=== PATIENT | female | born 2000 | race Caucasian/White ===

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

== ENCOUNTER 2022-07-06 08:56 | Emergency (ER) | payer OTHER ==
[2022-07-06 09:10] VITALS: TEMP 98.2
[2022-07-06] MEDS ORDERED: SODIUM CHLORIDE 0.9% 1,000 ML IV ONE (09:15)
--- NOTE | 2022-07-06 09:21 | ED ---
General Adult HPI - General Chief complaint: Vaginal Bleeding Stated complaint: Early , vaginal bleeding Time Seen by Provider: 07/06/22 09:13 Source: patient, RN notes reviewed, old records reviewed Mode of arrival: ambulatory Limitations: no limitations - History of Present Illness Initial comments: This is a 21-year-old well-appearing female that presents to the emergency room with complaints of vaginal bleeding and cramping this morning. Patient states that she is 5 weeks confirmed by ultrasound at [facility] this week. Denies any medical history. She is a with a two year old. She is a former smoker states stopped smoking when she found out she was . -: hour(s) Location: pelvis Severity scale (1-10): 4 Consistency: intermittent (cramping) Associated Symptoms: other (vaginal bleeding) Treatments Prior to Arrival: none - Related Data Allergies Allergy/AdvReac Type Severity Reaction Status Date / Time No Known Allergies Allergy Verified 07/06/22 09:10 Patient : Yes Number of weeks : 5 Review of Systems ROS Statement: Those systems with pertinent positive or pertinent negative responses have been documented in the HPI. ROS Other: All systems not noted in ROS Statement are negative. Past Medical History Past Medical History: No Reported History History of Any Multi-Drug Resistant Organisms: None Reported Past Surgical History: No Surgical Hx Reported Past Psychological History: No Psychological Hx Reported Smoking Status: Current every day smoker Past Alcohol Use History: None Reported Past Drug Use History: None Reported General Exam Limitations: no limitations General appearance: alert, in no apparent distress Head exam: Present: atraumatic Eye exam: Absent: scleral icterus, conjunctival injection, periorbital swelling Neck exam: Absent: tenderness, meningismus Respiratory exam: Absent: respiratory distress, chest wall tenderness Cardiovascular Exam: Present: regular rate Extremities exam: Present: normal capillary refill. Absent: pedal edema Neurological exam: Present: alert, oriented X3 Psychiatric exam: Present: normal affect, normal mood Skin exam: Present: warm, dry, normal color. Absent: cyanosis, diaphoretic, petechiae, pallor Course Vital Signs 07/06/22 09:08 Temperature 98.2 F Pulse Rate 75 Respiratory 20 Rate Blood Pressure 137/87 O2 Sat by Pulse 98 Oximetry Medical Decision Making - Medical Decision Making Hemoglobin and hematocrit are stable. Beta hCG is 81.8 Urinalysis sent for culture patient denies any dysuria. Ultrasound interpreted by me shows no evidence of intrauterine . Radiologist interpretation of Ultrasound no evidence of intrauterine gestational sac. This could represent early , ectopic and spontaneous . No IUP seen at this time. Minimal amount of fluid in the endometrial canal with adjacent tiny myometrial cyst identified. Follow-up ultrasound recommended in 5-7 days and serial hCG studies recommended. Blood type A-, she was given RhoGAM. She was directed to have her labs redrawn in 48 hours and follow-up with [facility]. Strict return parameters were discussed with her and family member. Case discussed with Dr. Hannon Was pt. sent in by a medical professional or institution? @ -no Did you speak to anyone other than the patient for history? @ -no Did you review nursing and triage notes? @ -yes i agree Were old charts reviewed? @ -no Differential Diagnosis? @ -Differential Abdominal Pain Women: Ectopic , threatened miscarriage, ovarian torsion, PID, placenta abruption, this is not meant to be an all-inclusive list U/S interpreted by me (1pt. min.)? @ -Yes as above What testing was considered but not performed? (CT, X-rays, U/S, labs)? Why? @ no What meds were considered but not given? Why? @ -none Did you discuss the management of the patient with other professionals? @ -no Did you reconcile home meds? @ -no Was smoking cessation discussed for >3mins.? @ -yes, patient states stopped smoking when she found out she was Was critical care preformed (if so, how long)? @ -no Were there social determinants of health that impacted care today? How? (Homelessness, low income, unemployed, alcoholism, drug addiction, transportation, low edu. Level, literacy, decrease access to med. care, longterm, rehab)? @ -no Was there de-escalation of care discussed even if they declined? (Discuss DNR or withdrawal of care, Hospice)? @ -no What co-morbidities impacted this encounter? (DM, HTN, Smoking, COPD, CAD, Cancer, CVA, Hep., AIDS, mental health diagnosis, sleep apnea, morbid obesity)? @ -smoking Was patient admitted / discharged? @ -discharged Undiagnosed new problem with uncertain prognosis? @ -[none] Drug Therapy requiring intensive monitoring for toxicity (Heparin, Nitro, Insulin, Cardizem)? @ -[none] Were any procedures done? @ -no Diagnosis/symptom? @ -Threatened miscarriage Acute, or Chronic, or Acute on Chronic? @ -[default] Uncomplicated (without systemic symptoms) or Complicated (systemic symptoms)? @ -[default] Side effects of treatment? @ -[none] Exacerbation, Progression, or Severe Exacerbation] @ -[no] Poses a threat to life or bodily function? @ -[no] - Lab Data Result diagrams: 07/06/22 09:27 07/06/22 09: Lab Results 07/06/22 07/06/22 07/06/22 Range/Units 09: 09: 09:30 WBC 7.2 (3.8-10.6) k/uL RBC 4.63 (3.80-5.40) m/uL Hgb 14.7 (11.4-16.0) gm/dL Hct 42.9 (34.0-46.0) % MCV 92.8 (80.0-100.0) fL MCH 31.8 (25.0-35.0) pg MCHC 34.3 (31.0-37.0) g/dL RDW 12.2 (11.5-15.5) % Plt Count 274 (150-450) k/uL MPV 7.5 Neutrophils % 65 % Lymphocytes % 24 % Monocytes % 6 % Eosinophils % 2 % Basophils % 1 % Neutrophils # 4.7 (1.3-7.7) k/uL Lymphocytes # 1.7 (1.0-4.8) k/uL Monocytes # 0.4 (0-1.0) k/uL Eosinophils # 0.2 (0-0.7) k/uL Basophils # 0.1 (0-0.2) k/uL Sodium 141 (137-145) mmol/L Potassium 4.0 (3.5-5.1) mmol/L Chloride 111 H (98-107) mmol/L Carbon Dioxide 22 (22-30) mmol/L Anion Gap 8 mmol/L BUN 11 (7-17) mg/dL Creatinine 0.51 L (0.52-1.04) mg/dL Est GFR (CKD-EPI)AfAm >90 (>60 ml/min/1.73 sqM) Est GFR (CKD-EPI)NonAf >90 (>60 ml/min/1.73 sqM) Glucose 96 (74-99) mg/dL Calcium 8.8 (8.4-10.2) mg/dL HCG, Quant 81.8 mIU/mL Urine Color Urine Appearance (Clear) Urine RBC (0-5) /hpf Urine WBC (0-5) /hpf Ur Squamous Epith Cells (0-4) /hpf Blood Type A Negative Blood Type Confirm Blood Type Recheck No Previous Record Bld Type Recheck Status CABO Indicated Antibody Screen NEGATIVE 07/06/22 07/06/22 Range/Units 09:50 11:18 WBC (3.8-10.6) k/uL RBC (3.80-5.40) m/uL Hgb (11.4-16.0) gm/dL Hct (34.0-46.0) % MCV (80.0-100.0) fL MCH (25.0-35.0) pg MCHC (31.0-37.0) g/dL RDW (11.5-15.5) % Plt Count (150-450) k/uL MPV Neutrophils % % Lymphocytes % % Monocytes % % Eosinophils % % Basophils % % Neutrophils # (1.3-7.7) k/uL Lymphocytes # (1.0-4.8) k/uL Monocytes # (0-1.0) k/uL Eosinophils # (0-0.7) k/uL Basophils # (0-0.2) k/uL Sodium (137-145) mmol/L Potassium (3.5-5.1) mmol/L Chloride (98-107) mmol/L Carbon Dioxide (22-30) mmol/L Anion Gap mmol/L BUN (7-17) mg/dL Creatinine (0.52-1.04) mg/dL Est GFR (CKD-EPI)AfAm (>60 ml/min/1.73 sqM) Est GFR (CKD-EPI)NonAf (>60 ml/min/1.73 sqM) Glucose (74-99) mg/dL Calcium (8.4-10.2) mg/dL HCG, Quant mIU/mL Urine Color Red Urine Appearance Bloody H (Clear) Urine RBC >182 H (0-5) /hpf Urine WBC >182 H (0-5) /hpf Ur Squamous Epith Cells 385 H (0-4) /hpf Blood Type Blood Type Confirm A Negative Blood Type Recheck Bld Type Recheck Status Antibody Screen Disposition Clinical Impression: Threatened Disposition: HOME SELF-CARE Condition: Good Instructions (If sedation given, give patient instructions): Threatened Miscarriage (ED) Additional Instructions: Have your lab work repeated in 48 hours. Follow-up with [facility]. Return to the emergency room with any other concerning symptoms including increased bleeding or pain. Is patient prescribed a controlled substance at d/c from ED?: No Referrals: Lauryn Devries MD [Primary Care Provider] - 1-2 days Kalyn Washington DO [Doctor of Osteopathic Medicine] - 1-2 days Time of Disposition: 10:59
[2022-07-06 09:34] LABS: Basophils # (A) 0.1 k/uL (0-0.2); Basophils % (A) 1 %; Eosinophils # (A) 0.2 k/uL (0-0.7); Eosinophils % (A) 2 %; HCT 42.9 % (34.0-46.0); HGB 14.7 gm/dL (11.4-16.0); Lymphocytes # (A) 1.7 k/uL (1.0-4.8); Lymphocytes % (A) 24 %; MCH 31.8 pg (25.0-35.0); MCHC 34.3 g/dL (31.0-37.0); MCV 92.8 fL (80.0-100.0); Mean Platelet Volume 7.5; Monocytes # (A) 0.4 k/uL (0-1.0); Monocytes % (A) 6 %; Neutrophils # (A) 4.7 k/uL (1.3-7.7); Neutrophils % (A) 65 %; Platelet Count 274 k/uL (150-450); RBC 4.63 m/uL (3.80-5.40); RDW 12.2 % (11.5-15.5); WBC 7.2 k/uL (3.8-10.6)
[2022-07-06 09:43] LABS: African American GFR (CKD) >90 (>60 ml/min/1.73 sqM); Anion Gap 8 mmol/L; Blood Urea Nitrogen 11 mg/dL (7-17); Calcium 8.8 mg/dL (8.4-10.2); Carbon Dioxide 22 mmol/L (22-30); Chloride 111 mmol/L (98-107); Glucose 96 mg/dL (74-99); Non-African American GFR(CKD) >90 (>60 ml/min/1.73 sqM); Sodium 141 mmol/L (137-145)
[2022-07-06 10:00] LABS: HCG,Quantitative Serum 81.8 mIU/mL
[2022-07-06 10:06] LABS: Color,Urine Red; RBC,Urine >182 /hpf (0-5); Squamous Epithelial Cell,Urine 385 /hpf (0-4); WBC,Urine >182 /hpf (0-5)
[2022-07-06 10:07] LABS: Appearance,Urine Bloody (Clear)
[2022-07-06] MEDS ORDERED: Rhogam IMMUNE GLOBULIN 1,500 UNIT/1 ML IM ONE (10:36)
[2022-07-06] MEDS ORDERED: ACETAMINOPHEN TAB 500 MG TAB PO STA (10:51)
--- NOTE | 2022-07-06 10:54 | US ---
EXAMINATION TYPE: Transabdominal DATE OF EXAM: 07/06/2022 10:21 AM COMPARISON: NONE CLINICAL HISTORY: r/o ectopic. EXAM PERFORMED: Transvaginal (TV) and Transabdominal (TA) EXAM MEASUREMENTS: GESTATIONAL AGE / DATING Physician Established: Not yet established Dates by LMP: LMP unknown Dates by First Scan: No previous this is first scan Dates by Current Scan for: Unable to date by today's study MATERNAL ANATOMY Uterus: 7.5 x 4.8 x 5.7cm, minimal amount of fluid in endometrial canal, cyst measuring 0.3cm Right Ovary: 2.7 x 1.2 x 1.8cm Left Ovary: 2.8 x 1.5 x 1.3cm Post CDS / Adnexa: wnl Presence of free fluid: no GESTATION / SURVEY IUP: No IUP seen at this time Date of LMP: unknown Beta HcG (if available): Not available at this time No intrauterine gestation identified. Minimal amount of fluid in the endometrial canal with adjacent tiny myometrial cyst identified. IMPRESSION: No evidence of intrauterine gestational sac in this patient. This can be seen in early , ect opic and spontaneous . Follow up pelvic ultrasound in 5-7 days and serial beta hCG studies are recommended.
[2022-07-06] MEDS ORDERED: ACET/COD 300 MG/30 MG STARTER PACK 6 TAB BTL PO STA (11:08)
[2022-07-06] MEDS ORDERED: Acetaminophen-Codeine 300-30mg TAB PO STA (11:08)
[2022-07-06 12:01] VITALS: BP 117/82; PULSE 83; RESP 18
== END 2022-07-06 12:01 | disposition home or self-care (01) ==
LOC: EC 08:56
DX: O20.0 Threatened abortion (principal); O99.331 Smoking (tobacco) complicating pregnancy, first trimester; F17.200 Nicotine dependence, unspecified, uncomplicated; Z67.11 Type A blood, Rh negative; Z3A.01 Less than 8 weeks gestation of pregnancy
CPT/HCPCS: 36415; 86900; 86901; 80048; 85025; 86850; 81001; 84702; 87086; 76801; 76817; 99284; 96360; 96361; 96372; J2790

== ENCOUNTER 2023-09-20 09:22 | Outpatient (CLI) | payer OTHER ==
[2023-09-20 10:08] LABS: Appearance,Urine Clear (Clear); Bilirubin,Urine Negative (Negative); Blood,Urine Negative (Negative); Color,Urine Yellow; Glucose,Urine (UA) Negative (Negative); Ketones,Urine Negative (Negative); Leukocyte Esterase,Urine Negative (Negative); Nitrite,Urine Negative (Negative); PH, Urine 6.5 (5.0-8.0); Protein,Urine Trace (Negative); Specific Gravity,Urine 1.027 (1.001-1.035); Urobilinogen,Urine <2.0 mg/dL (<2.0)
[2023-09-20 11:32] VITALS: PULSE 102; RESP 17; TEMP 97.6
--- NOTE | 2023-09-22 08:10 | P.MSEPDOC ---
Presenting Problems - Arrival Data Date of Arrival on Unit: 09/20/23 Time of Arrival on Unit: 09:22 Mode of Transport: Ambulatory - Complaint OB-Reason for Admission/Chief Complaint: Decreased Movement, Pain Comment: pt presents to triage for decreased movement and cramping for the last 3 days Medical History - Information : 4 Para: 1 Term: 1 : 0 Abortions: Spontaneous or Elective: 2 Number of Living Children: 1 - Gestational Age Gestational Age by KENIA (wks/days): 32 Weeks and 5 Days Review of Systems - Review of Systems Constitutional: No problems Breast: No problems ENT: No problems Cardiovascular: No problems Respiratory: No problems Gastrointestinal: No problems Genitourinary: No problems Musculoskeletal: No problems Neurological: No problems Skin: No problems Vital Signs - Temperature Temperature: 97.6 F Temperature Source: Temporal Artery Scan - Pulse Right Brachial Pulse Rate: 102 Pulse Assessment Method: Automatic Cuff - Respirations Respiratory Rate: 17 Oxygen Delivery Method: Room Air O2 Sat by Pulse Oximetry: 97 Medical Screen Scoring - Cervical Exam Dilation (cm): 0 - Uterine Contractions Intensity: Mild Resting: Soft to palpation - Assessment - Baby A Baseline FHR: 135 Heart Rate - NICHD Category: Category I (Normal) NST: Reactive Physician Notification - Notification Comment Comment: reactive nst, cervix closed/thick/high, pt discharged with orders to follow up with her OB at office on 10/01 Maternal Triage Index - Maternal Triage Index Presenting for scheduled procedure w/no complaint: No - Stat/Priority 1 Stat Priority 1: No - Urgent/Priority 2 Urgent Priority 2: Yes Provider Notified: Noemí Love Provider Notified Time: 10:30 Criteria Met for Priority 2: pt presents to triage for decreased movement and cramping for the last 3 days Disposition - Disposition OB Disposition: Triage, Discharge to home, Written follow up instructions reviewed Discharge Date: 09/20/23 Discharge Time: 10:43 I agree with the RN Medical Screening Exam: Yes Case reviewed; plan agreed upon as documented in EMR&OBIX.: Yes Diagnosis: DECREASED MOVEMENTS, THIRD TRIMESTER, FETUS 1
== END 2023-09-20 10:43 | disposition home or self-care (01) ==
LOC: FBPOP 09:22
PROVIDERS: ATTEND Obstetrics & Gynecology
DX: O36.8131 Decreased fetal movements, third trimester, fetus 1 (principal); Z3A.32 32 weeks gestation of pregnancy
CPT/HCPCS: 59025; 81003; G0463; 99213

== ENCOUNTER 2023-09-26 18:05 | Outpatient (CLI) | payer OTHER ==
[2023-09-26 20:00] VITALS: BP 113/60; PULSE 105; RESP 16; TEMP 98.4
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
== END 2023-09-26 19:30 | disposition home or self-care (01) ==
LOC: FBPOP 18:05
PROVIDERS: ATTEND Obstetrics & Gynecology
DX: O9A.213 Injury, poisoning and certain other consequences of external causes complicating pregnancy, third trimester (principal); S09.90XA Unspecified injury of head, initial encounter; S29.9XXA Unspecified injury of thorax, initial encounter; O36.8131 Decreased fetal movements, third trimester, fetus 1; Z3A.33 33 weeks gestation of pregnancy; V89.2XXA Person injured in unspecified motor-vehicle accident, traffic, initial encounter
CPT/HCPCS: 59025; G0463; 99213

== ENCOUNTER 2023-10-10 13:33 | Outpatient (CLI) | payer OTHER ==
[2023-10-10 14:44] VITALS: BP 142/76; PULSE 115; RESP 17; TEMP 97.3
--- NOTE | 2023-10-19 18:21 | P.MSEPDOC ---
Presenting Problems - Arrival Data Date of Arrival on Unit: 10/10/23 Time of Arrival on Unit: 13:33 Mode of Transport: Ambulatory - Complaint OB-Reason for Admission/Chief Complaint: Rule Out SROM Comment: pt presented to triage for possible leaking fluid since last night Medical History - Information : 4 Para: 1 Term: 1 : 0 Abortions: Spontaneous or Elective: 2 Number of Living Children: 1 - Gestational Age Gestational Age by KENIA (wks/days): 35 Weeks and 4 Days Review of Systems - Review of Systems Constitutional: No problems Breast: No problems ENT: No problems Cardiovascular: No problems Respiratory: No problems Gastrointestinal: No problems Genitourinary: No problems Musculoskeletal: No problems Neurological: No problems Skin: No problems Vital Signs - Temperature Temperature: 97.3 F Temperature Source: Temporal Artery Scan - Pulse Right Brachial Pulse Rate: 115 Pulse Assessment Method: Automatic Cuff - Respirations Respiratory Rate: 17 Oxygen Delivery Method: Room Air - Blood Pressure Right Arm Blood Pressure: 142/76 Blood Pressure Mean: 98 Blood Pressure Source: Automatic Cuff Medical Screen Scoring - Cervical Exam Dilation (cm): 2 Effacement (%): 60 Station: -2 - Uterine Contractions Intensity: Mild Resting: Soft to palpation - Assessment - Baby A Baseline FHR: 140 Heart Rate - NICHD Category: Category I (Normal) NST: Reactive Physician Notification - Physician Notified Physician Notified Date: 10/10/23 Physician Notified Time: 14:13 Physician: Sandra Collins Order Received: Yes - Notification Comment Comment: reactive nst, irregular ctx's, amniosure negative, cervical exam /- 2, discharged home, has appt in office 10/15 Maternal Triage Index - Maternal Triage Index Presenting for scheduled procedure w/no complaint: No - Stat/Priority 1 Stat Priority 1: No - Urgent/Priority 2 Urgent Priority 2: No - Prompt/Priority 3 Prompt Priority 3: Yes Criteria Met for Priority 3: pt presented to triage for possible leaking fluid since last night Disposition - Disposition OB Disposition: Triage, Discharge to home, Written follow up instructions reviewed Discharge Date: 10/10/23 Discharge Time: 14:26 I agree with the RN Medical Screening Exam: Yes Physician's MSE Comment: I have neither seen nor examined the patient Case reviewed; plan agreed upon as documented in EMR&OBIX.: Yes Diagnosis: MATERNAL CARE FOR PROBLEM, UNSP, THIRD * DO NOT USE *
== END 2023-10-10 14:20 | disposition home or self-care (01) ==
LOC: MERGE 13:33 → FBPOP 13:33
PROVIDERS: ATTEND Obstetrics & Gynecology
DX: O47.03 False labor before 37 completed weeks of gestation, third trimester (principal); Z3A.35 35 weeks gestation of pregnancy
CPT/HCPCS: 59025; 84112; 99213

== ENCOUNTER 2023-10-12 07:15 | Outpatient (CLI) | payer OTHER ==
[2023-10-12 08:23] VITALS: BP 119/66; PULSE 99; RESP 18; TEMP 97.5
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
== END 2023-10-12 07:55 | disposition home or self-care (01) ==
LOC: FBPOP 07:15
PROVIDERS: ATTEND Obstetrics & Gynecology
DX: O36.8131 Decreased fetal movements, third trimester, fetus 1 (principal); O9A.213 Injury, poisoning and certain other consequences of external causes complicating pregnancy, third trimester; S79.911A Unspecified injury of right hip, initial encounter; Z3A.35 35 weeks gestation of pregnancy; W19.XXXA Unspecified fall, initial encounter
CPT/HCPCS: 59025; G0463; 99213

== ENCOUNTER 2023-10-20 10:08 | Inpatient (IN) | payer OTHER ==
[2023-10-20] MEDS ORDERED: TERBUTALINE 1 MG/ML VIAL SQ PRN (12:29)
[2023-10-20] MEDS ORDERED: miSOPROStoL 200 MCG TAB PO PRN (12:29)
[2023-10-20] MEDS ORDERED: LIDOCAINE 0.5% (PF) 5 MG/ML (50 ML SDV) SQ PRN (12:29)
[2023-10-20] MEDS ORDERED: OXYTOCIN 10 UNIT/ML 1 ML VIAL IM PRN (12:29)
[2023-10-20] MEDS ORDERED: TRANEXAMIC 1,000 MG/100ML-NACL 1,000 MG in EMPTY BAG 1 BAG IV PRN (12:29)
[2023-10-20] MEDS ORDERED: CARBOPROST TROMETHAMINE 250 MCG/ML 1 ML AMP IM PRN (12:29)
[2023-10-20] MEDS ORDERED: METHYLERGONOVINE 0.2 MG/ML 1 ML AMP IM PRN (12:29)
[2023-10-20] MEDS: LACTATED RINGERS 1,000 ML IV SCH (12:50)
[2023-10-20 13:07] LABS: Basophils % (A) 0 %; Eosinophils # (A) 0.2 k/uL (0-0.7); Eosinophils % (A) 2 %; HCT 35.1 % (34.0-46.0); HGB 11.8 gm/dL (11.4-16.0); Lymphocytes # (A) 1.6 k/uL (1.0-4.8); Lymphocytes % (A) 13 %; MCH 31.2 pg (25.0-35.0); MCHC 33.7 g/dL (31.0-37.0); MCV 92.8 fL (80.0-100.0); Mean Platelet Volume 7.3; Monocytes # (A) 0.8 k/uL (0-1.0); Monocytes % (A) 6 %; Neutrophils # (A) 9.3 k/uL (1.3-7.7); Neutrophils % (A) 76 %; Platelet Count 378 k/uL (150-450); RBC 3.79 m/uL (3.80-5.40); RDW 13.2 % (11.5-15.5); WBC 12.1 k/uL (3.8-10.6)
[2023-10-20] MEDS ORDERED: fentaNYL (PF) 50 MCG/ML 5 ML AMP ONE (14:14)
[2023-10-20] MEDS ORDERED: ROPIVACAINE 5 MG/ML 30 ML VIAL ONE (14:14)
[2023-10-20] MEDS ORDERED: SODIUM CHLORIDE 0.9% 250 ML BAG ONE (14:14)
--- NOTE | 2023-10-20 20:12 | P.HPOB ---
History of Present Illness H&P Date: 10/20/23 Chief Complaint: Regular uterine contractions Ms. Dee is a 23 year old at 37 weeks and 0 days with EDC of 11/10/2023 by LMP consistent with 1st trimester US who presents in labor dilated to 6 centimeters. The has been essentially uncomplicated. The patient is Rh negative, for which she received rhogam at 28 weeks. The fetus is measuring in the 64%ile based on a 32 week ultrasound. Obstetric history: 1 FTVD, 7#12oz, male, no complications. 1 SAB. 1 VTOP. work-up: blood type A negative (s/p rhogam 08/22/23), antibody negative, rubella non-immune, VDRL non-reactive, HBsAg negative, HIV negative, HCV Ab negative, gonorrhea negative, chlamydia negative, 1 hour GTT within normal limits, s/p flu vaccine 05/23/23. Past Medical History Past Medical History: No Reported History History of Any Multi-Drug Resistant Organisms: None Reported Past Surgical History: No Surgical Hx Reported Past Anesthesia/Blood Transfusion Reactions: No Reported Reaction Past Psychological History: No Psychological Hx Reported Smoking Status: Never smoker Past Alcohol Use History: None Reported Past Drug Use History: None Reported Medications and Allergies Home Medications Medication Instructions Recorded Confirmed Type Vit No.179/Iron/Folic 1 each PO DAILY 10/10/23 10/20/23 History [ Tablet] Allergies Allergy/AdvReac Type Severity Reaction Status Date / Time No Known Allergies Allergy Verified 10/20/23 10:14 Exam Vital Signs Temp Pulse Resp BP 10/20/23 10:14 97.9 F 104 H 18 127/70 Intake and Output 10/20/23 10/20/23 10/20/23 06:59 14:59 22:59 Other: # Voids 2 Weight 104.326 kg Focused physical exam is performed. This is a healthy-appearing in no apparent distress. Breathing is non-labored. Abdomen is gravid and non-tender. Cervical exam is 7 cm, 70 effacement, -3 station. AROM is undertaken with clear fluid noted. Extremities non-tender and non-edematous. heart tones are Category I and tocometer is graphing contractions every 2-4 minutes. Results Result Diagrams: 10/20/23 12:53 Abnormal Lab Results - Last 24 Hours (Table) 10/20/23 Range/Units 12:53 WBC 12.1 H (3.8-10.6) k/uL RBC 3.79 L (3.80-5.40) m/uL Neutrophils # 9.3 H (1.3-7.7) k/uL Assessment and Plan Assessment: 23 year old at 37 weeks and 0 days presenting in active labor Plan: Admit, clear liquid diet, pitocin augmentation, s/p epidural, continuous EFM and tocometer, close monitoring of patient. Anticipate vaginal delivery. Time with Patient: Less than 30
[2023-10-20] MEDS ORDERED: BENZOCAINE/MENTHOL SPRAY 1 GM/SPRAY AEROSOL TOPICAL PRN (21:40)
[2023-10-20] MEDS ORDERED: HYDROCORTISONE 2.5% RECTAL CREAM 30 GM TUBE RECTAL PRN (21:40)
[2023-10-20] MEDS ORDERED: LANOLIN CREAM 1 GM TUBE TOPICAL PRN (21:40)
[2023-10-20] MEDS ORDERED: diphenhydrAMINE 25 MG CAP PO PRN (21:40)
[2023-10-20] MEDS ORDERED: diphenhydrAMINE 50 MG CAP PO PRN (21:40)
[2023-10-20] MEDS ORDERED: SIMETHICONE 80 MG CHEWABLE PO PRN (21:40)
[2023-10-20] MEDS ORDERED: diphenhydrAMINE 50 MG/ML 1 ML VIAL IVP PRN ×2 (21:40)
[2023-10-20] MEDS ORDERED: ZOLPIDEM 5 MG TAB PO PRN (21:40)
--- NOTE | 2023-10-20 21:40 | P.PROBDLV ---
Vaginal Delivery Note - . Vaginal Delivery Note: DATE OF SERVICE: 10/20/2023 PROCEDURE: Normal Vaginal Delivery ATTENDING: Dr. Sandra Collins MD ESTIMATED BLOOD LOSS: 300 mL FINDINGS: VMI, Apgars 8/9. Weight 7 pounds and 11 ounces (3475 grams) PROCEDURE: Ms. Dee is a 23 year old at 37 weeks presenting to labor and delivery in active labor. The has been complicated by Rh negative status for which she received rhogam at 28 weeks. For further details, please review the admitting H&P. Pitocin augmentation was started and AROM was undertaken at 2001 revealing clear amniotic fluid. The patient quickly progressed to complete dilation. She pushed three times and a viable male was delivered over an intact perineum at 2124. The was placed on the maternal abdomen and bulb suctioned. The was noted to be spontaneously crying. Cord was clamped and cut after a 60-second delay. The infant was handed off to the pediatric team. Placenta was delivered whole with gentle cord traction at 2126. Oxytocin was started to facilitate uterine tone. Uterine fundus was found to be firm and below the umbilicus upon fundal massage. Thorough examination of the cervix, vagina, periurethral area, and perineum revealed no lacerations. The patient is stable and allowed to begin the bonding process.
[2023-10-20] MEDS: OXYTOCIN 30 UNITS/500 ML NS 30 UNIT in SALINE 1 500ML.BAG IV SCH (22:41)
[2023-10-20] MEDS: IBUPROFEN 600 MG TAB PO PRN (23:31)
[2023-10-21] MEDS: Rhogam IMMUNE GLOBULIN 1,500 UNIT/1 ML IM ONE (05:41)
[2023-10-21] MEDS: ACETAMINOPHEN TAB 325 MG TAB PO PRN (07:31)
[2023-10-21 07:38] LABS: Basophils % (A) 0 %; Eosinophils # (A) 0.2 k/uL (0-0.7); Eosinophils % (A) 1 %; HCT 30.8 % (34.0-46.0); HGB 10.8 gm/dL (11.4-16.0); Lymphocytes # (A) 2.2 k/uL (1.0-4.8); Lymphocytes % (A) 16 %; MCH 32.3 pg (25.0-35.0); MCHC 35.2 g/dL (31.0-37.0); MCV 91.9 fL (80.0-100.0); Mean Platelet Volume 7.6; Monocytes # (A) 0.8 k/uL (0-1.0); Monocytes % (A) 6 %; Neutrophils # (A) 10.4 k/uL (1.3-7.7); Neutrophils % (A) 74 %; Platelet Count 304 k/uL (150-450); RBC 3.35 m/uL (3.80-5.40); RDW 13.7 % (11.5-15.5); WBC 14.2 k/uL (3.8-10.6)
--- NOTE | 2023-10-21 09:37 | P.PNOBGVD ---
Subjective - Subjective Principal diagnosis: s/p normal vaginal delivery Interval history: The patient is doing well this morning and had no acute events overnight. She has no complaints this morning. She reports minimal lochia, passing flatus, voiding without difficulty, ambulating, and eating/drinking without nausea or vomiting. She is her without difficulty. She denies chest pain, shortness of breathing, fevers, or chills overnight. She denies pain or swelling in the legs. Patient reports: Reports appetite normal, Reports voiding normally, Reports pain well controlled, Reports ambulating normally [place]: doing well, nursing well Objective - Latest Vital Signs Latest vital signs: Vital Signs Temp Pulse Resp BP Pulse Ox 10/21/23 07:40 97.5 F L 74 18 103/68 97 10/21/23 03:30 98.0 F 87 16 99/61 10/20/23 23:30 91 16 105/56 10/20/23 23:15 86 16 103/59 10/20/23 23:00 88 16 119/67 10/20/23 22:45 78 16 113/62 10/20/23 22:30 99 16 121/68 10/20/23 22:15 90 16 120/65 10/20/23 22:00 98.1 F 89 16 113/79 10/20/23 21:45 89 16 122/78 10/20/23 21:30 96 16 132/75 10/20/23 10:14 97.9 F 104 H 18 127/70 Intake and Output 10/20/23 10/21/23 10/21/23 22:59 06:59 14:59 Output Total 660 Balance -660 Output: Estimated Blood Loss 300 Output, Quantitative 360 Blood Loss Other: # Voids 1 1 0 - Exam Extremities: Present: normal Abdomen: Present: normal appearance, soft Uterus: Present: normal, firm - Labs Labs: Abnormal Lab Results - Last 24 Hours (Table) 10/20/23 10/21/23 Range/Units 12:53 07:01 WBC 12.1 H 14.2 H (3.8-10.6) k/uL RBC 3.79 L 3.35 L (3.80-5.40) m/uL Hgb 10.8 L (11.4-16.0) gm/dL Hct 30.8 L (34.0-46.0) % Neutrophils # 9.3 H 10.4 H (1.3-7.7) k/uL Assessment and Plan Assessment: 23 year old now PPD#1 s/p normal vaginal delivery Plan: 1. . Patient meeting all milestones appropriately. 2. Viable Male Infant. Doing well at bedside, nursing well. Will need circumcision in AM. dispo: Anticipate discharge home tomorrow. Continue inpatient care.
[2023-10-21] MEDS: SENNOSIDES-DOCUSATE SODIUM 1 EACH TAB PO SCH (10:51)
[2023-10-21] MEDS: MEASLES-MUMPS-RUBELLA VACC/PF 12,500 UNIT/0.5 ML VIAL SQ ONE (11:29)
--- NOTE | 2023-10-22 08:42 | P.DS ---
Providers Date of admission: 10/20/23 12:27 Expected date of discharge: 10/22/23 Attending physician: Sandra Collins MD Primary care physician: Stated None Hospital Course: Ms. Dee is 23 year old now PPD#2 s/p normal vaginal delivery. The patient is doing well this morning and had no acute events overnight. She has no complaints this morning. She reports minimal lochia, passing flatus, voiding without difficulty, ambulating, and eating/drinking without nausea or vomiting. doing well at bedside, s/p circumcision. She denies chest pain, shortness of breathing, fevers, or chills overnight. She denies pain or swelling in the legs. restrictions are reviewed with the patient including pelvic rest for 6 weeks. The patient is encouraged to call the office if she experiences any heavy bleeding, foul-smelling discharge, breast complaints, or any if she has any other concerns. She will follow up in the office with in 6 weeks for exam. She will go home with prescription Motrin and Tylenol prn for pain. All questions are answered. Assessment: 23 year old now PPD#2 s/p normal vaginal delivery Patient Condition at Discharge: Good Plan - Discharge Summary New Discharge Prescriptions: New Ibuprofen [Motrin] 600 mg PO Q6HR PRN #30 tab PRN Reason: Mild Pain (Scale 1 To 3) Acetaminophen Tab [Tylenol] 650 mg PO Q6H PRN #30 tab PRN Reason: Mild Pain (Scale 1 To 3) No Action Vit No.179/Iron/Folic [ Tablet] 1 each PO DAILY Discharge Medication List Vit No.179/Iron/Folic [ Tablet] 1 each PO DAILY 10/10/23 [History] Acetaminophen Tab [Tylenol] 650 mg PO Q6H PRN #30 tab 10/22/23 [Rx] Ibuprofen [Motrin] 600 mg PO Q6HR PRN #30 tab 10/22/23 [Rx] Follow up Appointment(s)/Referral(s): Sandra Collins MD [STAFF PHYSICIAN] - 6 Weeks (PP 12/02/2023 @2:30Pm) Activity/Diet/Wound Care/Special Instructions: Instructions 1. Do not begin any exercise program for 3 weeks. 2. Do not resume sexual relations for 6 weeks or longer if uncomfortable. 3. You may take tub baths or showers at any time. 4. You may use tampons if desired after 6 weeks. 5. Keep any areas repaired with stitches clean and dry. 6. If you are not nursing, wear a good fitting, supportive bra during the day and limit fluid intake for at least 1 week to prevent breast engorgement. 7. Call the office, , within the next week to make appointment for your 6 week checkup if it has not already been made. 8. Report any of the following occurrences to the doctor promptly: a. Heavy, excessive bleeding b. Chills, fever c. Burning or frequency of urination d. Pain or redness and breasts if nursing e. Increasing pain or swelling of vulva (stitches). In addition to the above instructions, the following additional should be followed: 1. No heavy lifting or straining (exercising) until after 6 week checkup. 2. Keep abdominal incision clean and dry: You may wear a dressing if more comfortable. 3. Make office appointment for 2 weeks after delivery date. Discharge Disposition: HOME SELF-CARE
[2023-10-22 10:37] VITALS: BP 119/78; PULSE 81; RESP 16; TEMP 97.6
== END 2023-10-22 11:35 | disposition home or self-care (01) | DRG 560 ==
LOC: FBPOP 10:08 → 4FBP 12:27
PROVIDERS: ADMIT Obstetrics & Gynecology; ATTEND Obstetrics & Gynecology
PROC: 10E0XZZ Delivery of Products of Conception, External Approach (ICD-10-PCS; principal; 2023-10-20)
PROC: 10907ZC Drainage of Amniotic Fluid, Therapeutic from Products of Conception, Via Natural or Artificial Opening (ICD-10-PCS; principal; 2023-10-20)
PROC: 3E0234Z Introduction of Serum, Toxoid and Vaccine into Muscle, Percutaneous Approach (ICD-10-PCS; 2023-10-21)
PROC: 3E0134Z Introduction of Serum, Toxoid and Vaccine into Subcutaneous Tissue, Percutaneous Approach (ICD-10-PCS; 2023-10-21)
DX: O26.893 Other specified pregnancy related conditions, third trimester (principal); Z67.11 Type A blood, Rh negative; Z28.310 Unvaccinated for COVID-19; Z23 Encounter for immunization; Z3A.37 37 weeks gestation of pregnancy; Z37.0 Single live birth
CPT/HCPCS: 59025; 85025; 85461; 86850; 86900; 86901; 90707; 99213

== ENCOUNTER 2024-12-22 11:50 | Emergency (ER) | payer OTHER ==
--- NOTE | 2024-12-22 12:25 | ED ---
General Adult HPI - General Chief complaint: Back Pain/Injury Stated complaint: Left flank pain Time Seen by Provider: 12/22/24 12:06 Source: patient, RN notes reviewed Mode of arrival: ambulatory Limitations: no limitations - History of Present Illness Initial comments: 24-year-old female presents to the emergency department for evaluation of bilateral flank pain. Patient states that this started today. She notes that she was recently ill with a stomach bug. She had vomited multiple times. She states that this has improved. She denies any recent fever, chills, cough, congestion, urinary symptoms, abdominal pain. - Related Data Home Medications Medication Instructions Recorded Confirmed Vit No.179/Iron/Folic 1 each PO DAILY 10/10/23 10/20/23 [ Tablet] Previous Rx's Medication Instructions Recorded Acetaminophen Tab [Tylenol] 650 mg PO Q6H PRN #30 tab 10/22/23 Ibuprofen [Motrin] 600 mg PO Q6HR PRN #30 tab 10/22/23 Ketorolac [Toradol] 10 mg PO Q8HR #15 tab 12/22/24 Ondansetron Odt [Zofran Odt] 4 mg PO Q8HR PRN #9 tab 12/22/24 Allergies Allergy/AdvReac Type Severity Reaction Status Date / Time No Known Allergies Allergy Verified 10/20/23 10:14 Review of Systems ROS Statement: Those systems with pertinent positive or pertinent negative responses have been documented in the HPI. ROS Other: All systems not noted in ROS Statement are negative. Past Medical History Past Medical History: No Reported History History of Any Multi-Drug Resistant Organisms: None Reported Past Surgical History: No Surgical Hx Reported Past Anesthesia/Blood Transfusion Reactions: No Reported Reaction Past Psychological History: No Psychological Hx Reported Smoking Status: Never smoker Past Alcohol Use History: None Reported Past Drug Use History: None Reported General Exam Limitations: no limitations General appearance: alert, in no apparent distress Head exam: Present: atraumatic, normocephalic, normal inspection Eye exam: Present: normal appearance, PERRL, EOMI. Absent: scleral icterus, conjunctival injection, periorbital swelling ENT exam: Present: normal exam, mucous membranes moist Neck exam: Present: normal inspection. Absent: tenderness, meningismus, lymphadenopathy Respiratory exam: Present: normal lung sounds bilaterally. Absent: respiratory distress, wheezes, rales, rhonchi, stridor Cardiovascular Exam: Present: regular rate, normal rhythm, normal heart sounds. Absent: systolic murmur, diastolic murmur, rubs, gallop, clicks GI/Abdominal exam: Present: soft, normal bowel sounds. Absent: distended, tenderness, guarding, rebound, rigid Extremities exam: Present: normal inspection, full ROM, normal capillary refill. Absent: tenderness, pedal edema, joint swelling, calf tenderness Back exam: Present: normal inspection Neurological exam: Present: alert, oriented X3 Psychiatric exam: Present: normal affect, normal mood Skin exam: Present: warm, dry, intact, normal color. Absent: rash Course Vital Signs 12/22/24 12/22/24 12/22/24 11:52 14:04 15:12 Temperature 97.9 F 98.1 F Pulse Rate 66 72 65 Respiratory 20 18 18 Rate Blood Pressure 134/85 115/70 118/89 O2 Sat by Pulse 98 98 100 Oximetry Medical Decision Making - Medical Decision Making Was pt. sent in by a medical professional or institution (, PA, INVENTORY ADMINISTRATOR, urgent care, hospital, or usp...) When possible be specific @ -No Did you speak to anyone other than the patient for history (EMS, parent, family, police, friend...)? What history was obtained from this source @ -No Did you review nursing and triage notes (agree or disagree)? Why? @ -I reviewed and agree with nursing and triage notes Were old charts reviewed (outside hosp., previous admission, EMS record, old EKG, old radiological studies, urgent care reports/EKG's, usp records)? Report findings @ -No old charts were reviewed Differential Diagnosis (chest pain, altered mental status, abdominal pain women, abdominal pain men, vaginal bleeding, weakness, fever, dyspnea, syncope, headache, dizziness, GI bleed, back pain, seizure, CVA, palpatations, mental health, musculoskeletal)? @ -Differential Back Pain: Strain, zoster, cauda equina syndrome, epidural abscess, vertebral osteomyelitis, discitis, fracture, subluxation, disc herniation, DJD, spinal stenosis, dissection, AAA, pancreatitis, peptic ulcer disease, pyelonephritis, kidney stone, this is not meant to be an all-inclusive list. EKG interpreted by me (3pts min.). @ -None X-rays interpreted by me (1pt min.). @ -None done CT interpreted by me (1pt min.). @ -None done U/S interpreted by me (1pt. min.). @ -None done What testing was considered but not performed or refused? (CT, X-rays, U/S, la bs)? Why? @ -None What meds were considered but not given or refused? Why? @ -None Did you discuss the management of the patient with other professionals (professionals i.e. , PA, INVENTORY ADMINISTRATOR, lab, RT, psych nurse, family welfare social work professor, assistant project manager, teacher, medical scientific officer, wrapper caser)? Give summary @ -No Was smoking cessation discussed for >3mins.? @ -No Was critical care preformed (if so, how long)? @ -No Were there social determinants of health that impacted care today? How? (Homelessness, low income, unemployed, alcoholism, drug addiction, transportation, low edu. Level, literacy, decrease access to med. care, correction, rehab)? @ -No Was there de-escalation of care discussed even if they declined (Discuss DNR or withdrawal of care, Hospice)? DNR status @ -No What co-morbidities impacted this encounter? (DM, HTN, Smoking, COPD, CAD, Cancer, CVA, ARF, Chemo, Hep., AIDS, mental health diagnosis, sleep apnea, morbid obesity)? @ -None Was patient admitted / discharged? Hospital course, mention meds given and route, prescriptions, significant lab abnormalities, going to OR and other pertinent info. @ -Discharge.Patient presented emergency department for evaluation of back pain. Laboratory studies obtained revealing no significant leukocytosis, hemoglobin 13.7; CMP is nonactionable UA shows no evidence of infectious process, negative urine hCG. Patient reports significant improvement in her symptoms with Toradol. Patient will be discharged home. She is understanding agreeable plan. Patient stable at time of discharge. Case discussed with Dr. Montes. Undiagnosed new problem with uncertain prognosis? @ -No Drug Therapy requiring intensive monitoring for toxicity (Heparin, Nitro, Insulin, Cardizem)? @ -No Were any procedures done? @ -No Diagnosis/symptom? @ -Back pain Acute, or Chronic, or Acute on Chronic? @ -Acute Uncomplicated (without systemic symptoms) or Complicated (systemic symptoms)? @ -Uncomplicated Side effects of treatment? @ -No Exacerbation, Progression, or Severe Exacerbation? @ -No Poses a threat to life or bodily function? How? (Chest pain, USA, PA, pneumonia, PE, COPD, DKA, ARF, appy, cholecystitis, CVA, Diverticulitis, Homicidal, Suicidal, threat to staff... and all critical care pts) @ -No - Lab Data Result diagrams: 12/22/24 12:48 12/22/24 12:48 Lab Results 12/22/24 12/22/24 12/22/24 Range/Units 12:48 12:48 12:48 WBC 5.32 (4.50-10.00) 10*3/uL RBC 4.27 (4.10-5.20) 10*6/uL Hgb 13.7 (12.0-15.0) g/dL Hct 39.4 (37.2-46.3) % MCV 92.3 (80.0-97.0) fL MCH 32.1 H (27.0-32.0) pg MCHC 34.8 (32.0-37.0) g/dL Plt Count 238 (140-440) 10*3/uL MPV 9.6 (9.5-12.2) fL Immature Gran % (Auto) 0.4 % Neutrophils % (Manual) 47 % Lymphocytes % (Manual) 46 % Monocytes % (Manual) 4 % Metamyelocytes % 1 % Myelocytes % 2 % Immature Gran # 0.02 (0.00-0.04) 10*3/uL Neutrophils # (Manual) 2.50 (1.3-7.7) k/uL Lymphocytes # (Manual) 2.45 (1.0-4.8) k/uL Monocytes # (Manual) 0.21 (0-1.0) k/uL Metamyelocytes # (Man) 0.05 H (0) k/uL Myelocytes # (Manual) 0.11 H (0) k/uL Nucleated RBCs 0 (0-0) /100 WBC Manual Slide Review Performed Sodium (137-145) mmol/L Potassium (3.5-5.1) mmol/L Chloride (98-107) mmol/L Carbon Dioxide (22-30) mmol/L Anion Gap mmol/L BUN (7-17) mg/dL Creatinine (0.52-1.04) mg/dL Est GFR (CKD-EPI)AfAm (>60 ml/min/1.73 sqM) Est GFR (CKD-EPI)NonAf (>60 ml/min/1.73 sqM) Glucose (74-99) mg/dL Calcium (8.4-10.2) mg/dL Total Bilirubin (0.2-1.3) mg/dL AST (14-36) U/L ALT (4-34) U/L Alkaline Phosphatase (38-126) U/L Total Protein (6.3-8.2) g/dL Albumin (3.5-5.0) g/dL Amylase (30-110) U/L Lipase (23-300) U/L Urine Color Colorless Urine Appearance Clear (Clear) Urine pH 6.0 (5.0-8.0) Ur Specific [place] 1.013 (1.001-1.035) Urine Protein Negative (Negative) Urine Glucose (UA) Negative (Negative) Urine Ketones Negative (Negative) Urine Blood Negative (Negative) Urine Nitrite Negative (Negative) Urine Bilirubin Negative (Negative) Urine Urobilinogen <2.0 (<2.0) mg/dL Ur Leukocyte Esterase Negative (Negative) Urine HCG, Qual Not Detected (Not Detectd) 12/22/24 Range/Units 12:48 WBC (4.50-10.00) 10*3/uL RBC (4.10-5.20) 10*6/uL Hgb (12.0-15.0) g/dL Hct (37.2-46.3) % MCV (80.0-97.0) fL MCH (27.0-32.0) pg MCHC (32.0-37.0) g/dL Plt Count (140-440) 10*3/uL MPV (9.5-12.2) fL Immature Gran % (Auto) % Neutrophils % (Manual) % Lymphocytes % (Manual) % Monocytes % (Manual) % Metamyelocytes % % Myelocytes % % Immature Gran # (0.00-0.04) 10*3/uL Neutrophils # (Manual) (1.3-7.7) k/uL Lymphocytes # (Manual) (1.0-4.8) k/uL Monocytes # (Manual) (0-1.0) k/uL Metamyelocytes # (Man) (0) k/uL Myelocytes # (Manual) (0) k/uL Nucleated RBCs (0-0) /100 WBC Manual Slide Review Sodium 140 (137-145) mmol/L Potassium 4.4 (3.5-5.1) mmol/L Chloride 110 H (98-107) mmol/L Carbon Dioxide 23 (22-30) mmol/L Anion Gap 7 mmol/L BUN 8 (7-17) mg/dL Creatinine 0.52 (0.52-1.04) mg/dL Est GFR (CKD-EPI)AfAm >90 (>60 ml/min/1.73 sqM) Est GFR (CKD-EPI)NonAf >90 (>60 ml/min/1.73 sqM) Glucose 93 (74-99) mg/dL Calcium 8.9 (8.4-10.2) mg/dL Total Bilirubin 1.0 (0.2-1.3) mg/dL AST 23 (14-36) U/L ALT 26 (4-34) U/L Alkaline Phosphatase 48 (38-126) U/L Total Protein 6.3 (6.3-8.2) g/dL Albumin 3.9 (3.5-5.0) g/dL Amylase 44 (30-110) U/L Lipase 59 (23-300) U/L Urine Color Urine Appearance (Clear) Urine pH (5.0-8.0) Ur Specific [place] (1.001-1.035) Urine Protein (Negative) Urine Glucose (UA) (Negative) Urine Ketones (Negative) Urine Blood (Negative) Urine Nitrite (Negative) Urine Bilirubin (Negative) Urine Urobilinogen (<2.0) mg/dL Ur Leukocyte Esterase (Negative) Urine HCG, Qual (Not Detectd) Disposition Clinical Impression: Back pain Disposition: HOME SELF-CARE Condition: Stable Instructions (If sedation given, give patient instructions): Acute Low Back Pain (ED) Additional Instructions: Please follow-up your doctor. Return to the emergency department for new or worsening symptoms. Prescriptions: Ketorolac [Toradol] 10 mg PO Q8HR #15 tab Ondansetron Odt [Zofran Odt] 4 mg PO Q8HR PRN #9 tab PRN Reason: Nausea Is patient prescribed a controlled substance at d/c from ED?: No Referrals: Donya Vann DO [Primary Care Provider] - 1-2 days
[2024-12-22] MEDS: SODIUM CHLORIDE 0.9% 1,000 ML IV ONE (12:53)
[2024-12-22] MEDS: FAMOTIDINE 20 MG/2 ML VIAL IV STA (12:54)
[2024-12-22] MEDS: KETOROLAC 15 MG/ML 1 ML VIAL IVP STA (12:56)
[2024-12-22 12:59] LABS: Bilirubin,Urine Negative (Negative); Blood,Urine Negative (Negative); Color,Urine Colorless; Glucose,Urine (UA) Negative (Negative); Ketones,Urine Negative (Negative); Leukocyte Esterase,Urine Negative (Negative); Nitrite,Urine Negative (Negative); PH, Urine 6.0 (5.0-8.0); Protein,Urine Negative (Negative); Specific Gravity,Urine 1.013 (1.001-1.035); Urobilinogen,Urine <2.0 mg/dL (<2.0)
[2024-12-22 13:10] LABS: HCT 39.4 % (37.2-46.3); HGB 13.7 g/dL (12.0-15.0); MCH 32.1 pg (27.0-32.0); MCHC 34.8 g/dL (32.0-37.0); MCV 92.3 fL (80.0-97.0); Platelet Count 238 10*3/uL (140-440); RBC 4.27 10*6/uL (4.10-5.20); RDW 13.4 % (11.5-14.5); WBC 5.32 10*3/uL (4.50-10.00)
[2024-12-22 13:11] LABS: ALT 26 U/L (4-34); AST 23 U/L (14-36); African American GFR (CKD) >90 (>60 ml/min/1.73 sqM); Albumin 3.9 g/dL (3.5-5.0); Alkaline Phosphatase 48 U/L (38-126); Amylase 44 U/L (30-110); Anion Gap 7 mmol/L; Blood Urea Nitrogen 8 mg/dL (7-17); Calcium 8.9 mg/dL (8.4-10.2); Carbon Dioxide 23 mmol/L (22-30); Chloride 110 mmol/L (98-107); Glucose 93 mg/dL (74-99); Lipase 59 U/L (23-300); Non-African American GFR(CKD) >90 (>60 ml/min/1.73 sqM); Potassium 4.4 mmol/L (3.5-5.1); Sodium 140 mmol/L (137-145); Total Protein 6.3 g/dL (6.3-8.2)
[2024-12-22 13:41] LABS: Lymphocytes # (M) 2.45 k/uL (1.0-4.8); Metamyelocytes # (M) 0.05 k/uL (0); Monocytes # (M) 0.21 k/uL (0-1.0); Myelocytes # (M) 0.11 k/uL (0); Neutrophils # (M) 2.50 k/uL (1.3-7.7); Neutrophils % (M) 47 %; Total Cells Counted 100
[2024-12-22 14:05] VITALS: RESP 18
[2024-12-22 15:14] VITALS: BP 118/89; PULSE 65; TEMP 98.1
== END 2024-12-22 15:14 | disposition home or self-care (01) ==
LOC: EC 11:50 → SUPCPDRO 11:50 → EC 15:14
DX: M54.9 Dorsalgia, unspecified (principal)
CPT/HCPCS: 36415; 80053; 82150; 83690; 85025; 81003; 81025; 99283; 96374; 96375; 96361; J1885; J1308